=== PATIENT | female | born 1945 | race Caucasian/White ===

== ENCOUNTER 2017-10-28 02:20 | Inpatient (IN) | payer OTHER, MEDICARE ==
[~2017-10-28] VITALS: Ht 195.6 cm; Wt 55.4 kg
[~2017-10-28 02:20] MED LIST: ALDACTONE100 M1 PO; AMBIEN10 M1 PO; FUROSEMIDE40 M1 PO; LEVOTHYROXINE50 MCG PO; PERCOCET 5-3251 EACH PO; VENLAFAXINE HC150 M1 PO
--- NOTE | 2017-10-28 15:23 | Operative Report ---
Operative/Inv Procedure Report Surgery Date: 10/28/17 Name of Procedure: Left reverse total shoulder arthroplasty Pre-Operative Diagnosis: Left 4-part comminuted proximal humerus fracture Post-Operative Diagnosis: Left 4-part comminuted proximal humerus fracture Estimated Blood Loss: 150ml Surgeon/Central Office Supervisor: Lizabeth VILLALPANDO,Jabari Macias PA-C Anesthesia: general endotracheal tube, block IV Fluids: 2450mL Implants: Tornier Aequalis Reversed Fracture 25mm glenoid baseplate 36mm glenoid sphere 7mm humeral stem, cemented +9mm spacer with +6 lateralized humeral insert (poly) Drains: None Specimens: Humeral head Tourniquet: N/A Complications: None Condition: Stable Operative Indication: Ms. Ramesh is a 72 year-old left-hand dominant female who sustained a fall up several stairs on 10/14/17, landing on her left shoulder. She noted immediate pain and difficulty moving the arm; over the next few days she had increased bruising and swelling to the left chest wall, shoulder, forearm, and hand, prompting her to go to an Urgent Care for further evaluation. X-rays of the shoulder showed a comminuted proximal humerus fracture. She was initially evaluated by another provider, who ordered a CT scan. She followed up in the office for discussion of treatment options for her comminuted 4-part proximal humerus fracture. After discussing non-operative vs surgical intervention as well as the risks and benefits of surgery, she and her have opted to proceed with left reverse total shoulder arthroplasty. Consent was obtained and a pre-op evaluation was performed by her primary care provider. Operative/Procedure Note Note: Ms Ramesh arrived at [facility] on 10/28/17. She was met in the pre- operative area, where her left shoulder was marked and her medical history was reviewed. A regional block was performed by the anesthesia service. The patient was then brought to the operating room and placed supine on the OR table. A time-out procedure was performed, in which the patient, the operative extremity, and the planned procedure were reviewed. SCDs were applied to bilateral lower legs. The patient was induced under general anesthesia. IV ancef was given for antibiotic prophylaxis. She was then repositioned in a modified beach chair position; care was taken to maintain the head in a neutral position and pad all bony prominences. The left upper extremity was prepped and draped in the usual sterile fashion, and supported by an articulated arm positioner. An incision was made over the anterior shoulder over the deltopectoral interval. This was taken through skin and subcutaneous tissue, and flaps were raised medial and lateral. The cephalic vein was identified and the interval opened medial to the vein, which was protected and retracted lateral. The sub-deltoid space was bluntly dissected and frature comminution was encountered. A kobel retractor was placed, and the conjoint ligament was identified. The lateral soft tissues were opened up to the coracoid and through the coraco-acromial ligament. The retractor was carefully placed under the conjoint tendon and care was taken to avoid excessive retraction. The anterior humerus was comminuted and the soft tissues traumatized, consistent with the known fracture pattern. A torn stump of the long head of biceps tendon was identified distally and tagged with sutures. Following the bicipital groove, the subscapularis tendon was identified medial and some comminuted bone from the lesser tuberosity. This was tagged with suture. The interval between the subscapularis tendon and supraspinatus was opened with a Herrera scissor. A fragment of the greater tuberosity was identified with the rotator cuff tendons; more bone remained attached to the greater tuberosity than the lesser. This was tagged with sutures. A shell of humeral head bone and articular cartilage was removed; this was very thin and had rotated laterally away from the glenoid. Once removed, the glenoid was easily viewed. Retractors were placed and the stump of the long head of the biceps identified. The remaining biceps and labral tissue was removed and the inferior and anterior /posterior aspects of the glenoid delineated. A guide pin was placed in the central portion of the inferior glenoid; this was positioned using a guide and at approximately 10 degrees of inclination. A series of reamers were then used to remove the articular cartilage and to ensure the baseplate and glenosphere would sit flush against the glenoid. The central peg was reamed and a 25mm baseplate impacted down to the glenoid. Two locked screws were placed in the superior and inferior holes; one posterior compression screw was also placed with marginal purchase. The anterior compression screw hole was too short for a compression screw and was left empty. Following fixation of the baseplate, the 36mm glenosphere was carefully impacted into position and screwed into place. This provided excellent fixation and the retractor removed. The humerus was then translated anterior for exposure of the shaft. The humeral diaphysis had been translated superior and had impacted into the humeral head. There was remaining medial calcar, however there was comminution and soft bone around the proximal extent of the humerus. The fibrous soft tissues and hematoma were removed and the humeral canal irrigated. Hand reamers were placed ; a 7mm reamer fit easily but the 9mm reamer was tight. A 7mm trial stem was carefully positioned and a +6mm poly tray placed. When reducing the trial, a small segment of anteromedial bone fracted off the humerus. The joint was reduced but easily dislocated. A +9mm tray was trialed and found to have good motion and stabilty; the shoulder was not easily dislocated, no "shuck" appreciated, and full passive motion was attained without evidence of impingement. The trials were removed and the shoulder copiously irrigated with pulse lavage. A segment of bone was removed from the humeral head fragment and placed in the window of the stem implant. Two 2.0mm drill holes were made in the anterior humeral bone, just lateral to the bicipital groove. The bone here was tenuous, so additional drill holes were not made. A #5 ticron suture was passed through the drill holes to allow the suture to loop around the stem. A cement restrictor was placed and cement then filled the humeral canal. The implant was then placed in 25 deg of retroversion and carefully tapped down to the appropriate height, which had been estabilished with the trial. The cement was allowed to harden for over 15 minutes. Once solid, the +9mm poly trial was placed and the shoulder again reduced and stable on testing. The shoulder was dislocated again and irrigated with pulse lavage. The +9mm poly implant was open and impacted into place. At this time, additional muscle relaxation was administered by anesthesia. When the shoulder was reduced, the humeral component was easily "shucked" and dislocated with gentle pressure. The shoulder was again dislocated and the poly implant removed with an osteotome. Larger poly trials and a spacer trial were placed to find the appropriate tension and stability of the shoulder; a spacer was placed followed by a +6mm poly tray for optimal stability. The shoulder again had good motion with forward flexion, abduction, and external rotation, but was not noted to shuck and did not easily dislocate. Following placement of the final implants, the shoulder was again irrigated with pulse lavage. The cephalic vein was noted to be bleeding and was cauterized. The long head of the biceps tendon was tenodesed to the upper segment of the pectoralis major tendon insertion. The #5 ticron suture passed through the bone and around the stem was used to secure the greater tubersity fragment and supraspinatus tissue. Once secured, the sutures were also used to reduce the subscapularis tendon and small bony fragment to the stem. A #2 orthocord suture was used to close the interval between the supraspinatus and the subscupularis. Gentle passive external rotation showed a stable tendon reduction and configuration. The shoulder was again irrigated and hemostasis obtained. The deltopectoral interval was closed with three interrupted #2 orthocord stitches. The interval was then closed in layers using 0 vicryl, #2-0 vicryl, and #3-0 prolene for a running subcuticular stitch. The incision was re-inforced with steri-strips and dressed with gauze, an ABD pad, and foam tape. Following removal of the drapes, the patient's head was noted to be turned and not fully secured in the head positioner. She was repositioned and a sling applied. The was placed supine on the table and extubated. She was then taken from the OR to the recovery room in stable condition.
--- NOTE | 2017-10-28 15:50 | RADIOLOGY REPORT ---
EXAMINATION: XR SHOULDER, LEFT CLINICAL INFORMATION: Postoperative left shoulder. COMPARISON: None TECHNIQUE: Single portable view of the left shoulder. FINDINGS: There is a reverse total left shoulder arthroplasty. Hardware components appear appropriately aligned. The acromioclavicular joint is intact. The visualized lung is clear. Soft tissue swelling and gas. IMPRESSION: Reverse total left shoulder arthroplasty appears to be in appropriate alignment on this single view.
--- NOTE | 2017-10-28 16:13 | Admission Core Measures ---
Acute Coronary Syndrome (CM) ACS Core Measures Acute Coronary Syndrome Diagnosis No Congestive Heart Failure (NEW) CHF Core Measures Congestive Heart Failure Diagnosis No Cerebrovascular Accident CVA Core Measures CVA/TIA Diagnosis No Venous Thromboembolism VTE Core Jackie (View Protocol) VTE Risk Factors Surgery No Mechanical VTE Prophylaxis d/t N/A MechProphylax Ordered No VTE Pharm Prophylaxis d/t NA PharmProphylax ordered Problem List As ranked by this Provider includes Assessment & Plan 1. Comminuted left humeral fracture HOME MEDS Home Med List Furosemide 40 MG TABLET 1 TAB PO DAILY FLUID (Reported) Levothyroxine Sodium 50 MCG TABLET 1 TAB PO DAILY THYROID (Reported) Oxycodone HCl/Acetaminophen (Percocet 5-325 MG Tablet) 5 MG-325 MG TABLET 1 TAB PO 4 TIMES/DAY PRN PAIN (Reported) Spironolactone (Aldactone) 100 MG TABLET 1 TAB PO DAILY FLUID (Reported) Venlafaxine HCl (Venlafaxine HCl ER) 150 MG TAB.ER.24 1 TAB PO DAILY UNKNOWN (Reported) Zolpidem Tartrate (Ambien) 10 MG TABLET 1 TAB PO QPMP PRN SLEEP (Reported)
--- NOTE | 2017-10-28 16:29 | Patient Discharge Instructions ---
Discharge Instructions General Discharge Information You were seen/treated for: Left shoulder proximal humerus fracture You had these procedures: Reverse total shoulder replacement, left Watch for these problems: Increasing pain despite the use of pain medication Increasing redness, warmth and swelling Inability to utilize/bear weight with left arm Drainage of any type from incision Fever greater than 101.5 Do not soak the wound: Yes Other wound care: Keep wound clean and dry No ointments or lotions of any type on or near incision, no exceptions. Diet Continue normal diet: Yes Recommended Diet: Regular Activity Full Activity/No Limits: No Activity Self Limited: Yes Pounds, do NOT lift more than: 2 Acute Coronary Syndrome Inclusion Criteria At DC or during hospital stay patient has or had the following: ACS DIAGNOSIS No Discharge Core Measures Meds if any: Prescribed or Continued at Discharge Meds if any: NOT Prescribed or Continued at Discharge Congestive Heart Failure Inclusion Criteria At DC or during hospital stay patient has or had the following: CHF DIAGNOSIS No Discharge Core Measures Meds if any: Prescribed or Continued at Discharge Meds if any: NOT Prescribed or Continued at Discharge Cerebrovascular accident Inclusion Criteria At DC or during hospital stay patient has or had the following: CVA/TIA Diagnosis No Discharge Core Measures Meds if any: Prescribed or Continued at Discharge Meds if any: NOT Prescribed or Continued at Discharge Venous thromboembolism Inclusion Criteria VTE Diagnosis No VTE Type NONE VTE Confirmed by (Test) NONE Discharge Core Measures - Per Current guidelines, there needs to be overlap - treatment for the first 5 days of Warfarin therapy. - If discharged on Warfarin prior to 5 days of - overlap therapy, the patient will need to be - assessed for post discharge needs including - *Post discharge parental anticoagulation - *Warfarin and/or parental anticoagulation education - *Follow up date to check INR post discharge At least 5 days overlap therapy as Inpatient No Meds if any: Prescribed or Continued at Discharge Note: Overlap Therapy is Warfarin and Anticoagulant Meds if any: NOT Prescribed or Continued at Discharge
--- NOTE | 2017-10-28 16:34 | Surgical Discharge Summary ---
Visit Information Visit Dates Admission Date: 10/28/17 Discharge Date: 10/30/17 History of Present Illness Chief Complaint: Left shoulder comminuted 4-part proximal humerus fracture Medical History Blood Transfusion Hx: Yes (2u transfused 10/29/17) Surgical History Pertinent Surgical History: non-contributory Psychosocial History What is Your Primary Language? Vietnamese Review of Systems: See H&P Hospital Course Course Attending Physician: Karime Barone MD Primary Care Physician: Fly Frazier MD Hospital Course: Ms. Ramesh was admitted to the hospital on 10/28/2017 and underwent a left reverse total shoulder arthroplasty for her left comminuted 4-part proximal humerus fracture. She tolerated the procedure well and was transferred to a general surgical floor. There, her diet was advanced and tolerated and she voided spontaneously. She was evalualted and treated by physical therapy. She was noted to have mild hypotension, but denied dizziness or headache. Her labs values on POD#1 showed acute anemia of 6.9/17. She was transfused 2u of PRBCs with appropriate response in her vital signs and blood counts. At the time of hospital discharge, her vital signs were stable and within normal limits, her neurovascular status was intact, and her pain was controlled with the use of oral pain medication. She was deemed appropriate for discharge. Allergies: Coded Allergies: trazodone (UPSET STOMACH 10/28/17) Pertinent Lab Results: POD#1 labs: 5.9/17.4, rechecked 6.5/19 POD#2 labs: 10.6/31.8 Disposition Summary Disposition Principal Diagnosis: Left proximal humerus comminuted fracture Additional Diagnosis: None Discharge Disposition: home health services Discharge Instructions General Discharge Information Code Status: Full Code Patient's Diet: Regular, advance as tolerated Patient's Activity: As tolerated, no lifting Sling at all times, bolster when up and walking. No active movement of the arm. No external rotation of the shoulder or extension. Follow-Up Instructions/Appts: Follow up with Dr. Barone in 1-2 weeks from date of surgery. Medications at Discharge Discharge Medications: Continue taking these medications: Furosemide (Furosemide) 40 MG TABLET 1 Tablet ORAL DAILY Comments: Last Taken:10/30/17 Time:8AM Spironolactone (Aldactone) 100 MG TABLET 1 Tablet ORAL DAILY Comments: Last Taken:10/30/17 Time:8AM Venlafaxine HCl (Venlafaxine HCl ER) 150 MG TAB.ER.24 1 Tablet ORAL DAILY Comments: Last Taken:10/30/17 Time:8AM Levothyroxine Sodium (Levothyroxine Sodium) 50 MCG TABLET 1 Tablet ORAL DAILY Comments: Last Taken:10/30/17 Time:6AM Zolpidem Tartrate (Ambien) 10 MG TABLET 1 Tablet ORAL Every night as needed as needed for SLEEP Comments: NOT GIVEN Oxycodone HCl/Acetaminophen (Percocet 5-325 MG Tablet) 5 MG-325 MG TABLET 1 Tablet ORAL 4 TIMES A DAY as needed for PAIN Comments: Last Taken:10/29/17 Time:3AM Start taking the following new medications: Aspirin (Ecotrin*) 81 MG TABLET.DR 1 Tablet ORAL TWICE DAILY Qty = 80 No Refills Oxycodone HCl/Acetaminophen (Percocet 5-325 MG Tablet) 5 MG-325 MG TABLET 1 Tablet ORAL EVERY 4-6 HOURS as needed for postop pain Qty = 24 No Refills Attending MD Review Statement Attending Statement Attending MD Statement: examined this patient, discuss w/resident/PA/SYNTHETIC GEM PRESS OPERATOR, agreed w/resident/PA/SYNTHETIC GEM PRESS OPERATOR, discussed with family, reviewed EMR data (avail), reviewed images
--- NOTE | 2017-10-28 16:49 | RADIOLOGY REPORT ---
EXAMINATION: XR SHOULDER, LEFT CLINICAL INFORMATION: Left shoulder arthroplasty. COMPARISON: Radiograph from earlier today TECHNIQUE: Single portable view of the left shoulder. FINDINGS: Reverse total left shoulder arthroplasty again noted. Hardware components appear appropriately aligned. No evidence of failure. The visualized left lung is clear. IMPRESSION: Reverse total left shoulder arthroplasty in appropriate alignment.
[2017-10-28 17:00] VITALS: BP 86/70
--- NOTE | 2017-10-28 17:36 | PN- Orthopedic ---
Subjective Subjective: Postop check: Patient comfortable, no pain, no fever, no shortness of breath, no chest pain, states her arm is" numb" Objective Vital Signs and I&Os Vital signs stable, afebrile Physical Exam: Well-developed well-nourished no apparent distress. HEENT: Atraumatic, extraocular motion intact Neck: Supple, no lymphadenopathy trachea midline Respiratory: No respiratory distress Extremity: Left upper extremity, dressing clean dry and intact, sling applied, unable to test neurologic function due to anesthetic block. Vascular status is intact. Old ecchymosis and swelling noted in the hand and fingers Neuro: Alert and oriented x3 Psych: Mood affect normal, normal memory normal judgment. Skin: Warm and dry, no rash on exposed skin Results Recent Imaging Studies: xray left shoulder: Reverse total shoulder arthroplasty in alignment Assessment/Plan Assessment/Plan Postop day #0 status post left reverse total shoulder arthroplasty secondary to Left 4-part comminuted proximal humerus fracture Stay in sling. Occupational therapy tomorrow. Pain medication as needed. IV fluids overnight. Check labs in a.m. Aspirin for DVT prophylaxis. Perioperative antibiotics Hold NSAIDs OOB w assist First dressing change to be done as outpatient Likely discharge tomorrow to home Core Measures Venous Thromboembolism VTE Risk Factors Surgery No Mechanical VTE Prophylaxis d/t N/A MechProphylax Ordered No VTE Pharm Prophylaxis d/t NA PharmProphylax ordered
[2017-10-28 19:40] VITALS: BP 90/50
[2017-10-28 21:00] VITALS: BP 86/52
[2017-10-28 22:16] VITALS: BP 86/50
[2017-10-29 03:21] VITALS: BP 110/60
[2017-10-29 06:23] VITALS: BP 88/56
[2017-10-29 09:39] LABS: ABSOLUTE BASOPHIL COUNT 0 /CUMM (0.0-0.2); ABSOLUTE EOSINOPHIL COUNT 0 /CUMM (0.0-0.7); ABSOLUTE GRANULOCYTE CT 7.9 /CUMM (1.4-6.5); ABSOLUTE LYMPH COUNT 0.8 /CUMM (1.2-3.4); ABSOLUTE MONOCYTE COUNT 0.5 /CUMM (0.10-0.60); BASOPHIL % 0 % (0.0-2.0); EOSINOPHIL % 0 % (0-5); MEAN CORPUSCULAR HGB 36.8 PG (27.0-31.0); MEAN CORPUSCULAR HGB CONC 34.2 G/DL (33.0-37.0); MEAN CORPUSCULAR VOLUME 107.8 FL (81.0-99.0); MEAN PLATELET VOLUME 7.3 FL (7.4-10.4); PLATELET COUNT 223 /CUMM (130-400); RBC DISTRIBUTION WIDTH 13.6 % (11.5-14.5)
[2017-10-29 09:45] LABS: RED BLOOD CELL CT 1.61 /CUMM (4.20-5.40); WHITE BLOOD CELL COUNT 9.1 /CUMM (4.8-10.8)
[2017-10-29 09:47] LABS: HEMATOCRIT 17.4 % (37-47)
[2017-10-29 10:12] LABS: ABSOLUTE BASOPHIL COUNT 0 /CUMM (0.0-0.2); ABSOLUTE EOSINOPHIL COUNT 0 /CUMM (0.0-0.7); ABSOLUTE GRANULOCYTE CT 10.5 /CUMM (1.4-6.5); ABSOLUTE LYMPH COUNT 1.6 /CUMM (1.2-3.4); ABSOLUTE MONOCYTE COUNT 0.9 /CUMM (0.10-0.60); BASOPHIL % 0.3 % (0.0-2.0); EOSINOPHIL % 0 % (0-5); MEAN CORPUSCULAR HGB 36.7 PG (27.0-31.0); MEAN CORPUSCULAR HGB CONC 34.1 G/DL (33.0-37.0); MEAN CORPUSCULAR VOLUME 107.6 FL (81.0-99.0); MEAN PLATELET VOLUME 7.4 FL (7.4-10.4); PLATELET COUNT 270 /CUMM (130-400); RBC DISTRIBUTION WIDTH 13.5 % (11.5-14.5); RED BLOOD CELL CT 1.76 /CUMM (4.20-5.40)
--- NOTE | 2017-10-29 10:28 | PN- Orthopedic ---
Subjective Subjective: Patient seen and examined this morning. She is doing well and denies pain as left arm is still numb from the regional block. She says she did not sleep well due to noise from her roommate and was up every 2hrs. She is eager to go home. Says she has been up to the bathroom and was feeling steady on her feet. Denies headache, chest pain, trouble breathing, or nausea. Ate her dinner last night and was feeling hungry. Objective Vital Signs and I&Os Vital Signs Date Time Temp Pulse Resp B/P B/P Pulse O2 O2 Flow FiO2 Mean Ox Delivery Rate 10/29 622 98.2 91 20 88/56 95 Room Air 10/29 0321 97.5 88 20 110/60 98 Room Air 10/28 2216 97.5 82 18 86/50 92 10/28 2100 97.5 81 18 86/52 94 10/28 2052 Room Air 10/28 1940 97.6 81 18 90/50 96 10/28 1730 98 Room Air 10/28 1700 97.6 88 15 86/70 98 Room Air Intake & Output 10/29 1600 10/29 0800 10/29 0000 10/28 1600 10/28 0800 10/28 0000 Intake Total 800 150 Output Total 700 250 Balance 100 -100 Intake, IV 400 100 Intake, Oral 400 50 Output, Urine 700 250 Patient 122 lb 105 lb Weight Weight Reported by Patient Measurement Method Physical Exam: Patient lying in bed, comfortable. Alert, oriented, and in no distress. LUE: Dressing in place; clean, dry, and intact. Sling in place. Swelling to left hand and fingers. No active motion or sensation in the left hand or fingers. No sensation over the lateral arm. Able to strug bilateral shoulders. Sensation intact over chest wall and axilla; says the tape of her dressing is uncomfortable in the axilla but skin intact. Resolving ecchymosis over left chest wall and left arm/hand. 2+ radial pulse, hand warm and well-perfused. Results Last 48 Hours of Labs: Laboratory Tests 10/29 10/29 1003 0603 Chemistry Sodium (137 - 145 mmol/L) 136 L Potassium (3.5 - 5.1 mmol/L) 4.1 Chloride (98 - 107 mmol/L) 100 Carbon Dioxide (22 - 30 mmol/L) 29 Anion Gap (5 - 16) 8 BUN (7 - 17 mg/dL) 18 H Creatinine (0.5 - 1.0 mg/dL) 0.8 Estimated GFR (>60 ml/min) > 60 BUN/Creatinine Ratio (7 - 25 %) 22.5 Hematology CBC w Diff NO MAN DIFF REQ NO MAN DIFF REQ WBC (4.8 - 10.8 /CUMM) 13.0 H 9.1 RBC (4.20 - 5.40 /CUMM) 1.76 L 1.61 L Hgb (12.0 - 16.0 G/DL) 6.5 *L 5.9 *L Hct (37 - 47 %) 19.0 *L 17.4 *L MCV (81.0 - 99.0 FL) 107.6 H 107.8 H MCH (27.0 - 31.0 PG) 36.7 H 36.8 H MCHC (33.0 - 37.0 G/DL) 34.1 34.2 RDW (11.5 - 14.5 %) 13.5 13.6 Plt Count (130 - 400 /CUMM) 270 223 MPV (7.4 - 10.4 FL) 7.4 7.3 L Gran % (42.2 - 75.2 %) 81.0 H 86.0 H Lymphocytes % (20.5 - 51.1 %) 12.1 L 9.1 L Monocytes % (1.7 - 9.3 %) 6.6 4.9 Eosinophils % (0 - 5 %) 0 0 Basophils % (0.0 - 2.0 %) 0.3 0 Absolute Granulocytes (1.4 - 6.5 /CUMM) 10.5 H 7.9 H Absolute Lymphocytes (1.2 - 3.4 /CUMM) 1.6 0.8 L Absolute Monocytes (0.10 - 0.60 /CUMM) 0.9 H 0.5 Absolute Eosinophils (0.0 - 0.7 /CUMM) 0 0 Absolute Basophils (0.0 - 0.2 /CUMM) 0 0 Assessment/Plan Assessment/Plan 72yo F with history of cirrhosis and alcoholism, hypothyroidism, and osteopenia now POD#1 left reverse total shoulder arthroplasty for comminuted 4-part proximal humerus fracture. No issues overnight, pain control from intact regional block. Hypotension following surgery (86-110/50-70) but patient is asymptomatic at this time. AM labs showed H/H 5.9/17.4; recheck 6.5/19. 1. NWB LUE in sling; ultasling bolster when out of bed and ambulating. 2. Pillow to elevate LUE while resting in bed 3. When block wears off, encourage motion of hand and elbow to minimize swelling 4. Transfuse 2u PRBCs for low H/H and hypotension 5. OT evaluation 6. Pain control, limit tylenol due to history of liver disease. 7. Aspirin 81mg BID for DVT prophylaxis. SCDs while in bed. Encourage ambulation as tolerated. Plan for follow up in the office as scheduled on 11/10/17. Core Measures Venous Thromboembolism VTE Risk Factors Surgery No Mechanical VTE Prophylaxis d/t N/A MechProphylax Ordered No VTE Pharm Prophylaxis d/t NA PharmProphylax ordered Attending MD Review Statement Attending Statement Attending MD Statement: examined this patient, discuss w/resident/PA/SCREEDMAN/LABORER, agreed w/resident/PA/SCREEDMAN/LABORER, reviewed images
[2017-10-29 12:00] VITALS: BP 100/52
[2017-10-29 14:28] VITALS: BP 112/58
[2017-10-29 22:06] LABS: ABSOLUTE BASOPHIL COUNT 0 /CUMM (0.0-0.2); ABSOLUTE EOSINOPHIL COUNT 0 /CUMM (0.0-0.7); ABSOLUTE LYMPH COUNT 0.9 /CUMM (1.2-3.4); ABSOLUTE MONOCYTE COUNT 0.8 /CUMM (0.10-0.60); BASOPHIL % 0.1 % (0.0-2.0); EOSINOPHIL % 0 % (0-5); GRANULOCYTE % 80.5 % (42.2-75.2); MEAN CORPUSCULAR HGB 33.3 PG (27.0-31.0); MEAN CORPUSCULAR HGB CONC 34.1 G/DL (33.0-37.0); MEAN PLATELET VOLUME 7.2 FL (7.4-10.4); PLATELET COUNT 191 /CUMM (130-400); RBC DISTRIBUTION WIDTH 18.1 % (11.5-14.5); WHITE BLOOD CELL COUNT 8.8 /CUMM (4.8-10.8)
[2017-10-29 22:10] LABS: MEAN CORPUSCULAR VOLUME 97.8 FL (81.0-99.0); RED BLOOD CELL CT 2.96 /CUMM (4.20-5.40)
[2017-10-29 22:14] VITALS: BP 114/60
[2017-10-30] VITALS: BP 114/60
[2017-10-30 06:40] VITALS: BP 110/70
[2017-10-30 08:09] LABS: ABSOLUTE BASOPHIL COUNT 0 /CUMM (0.0-0.2); ABSOLUTE EOSINOPHIL COUNT 0 /CUMM (0.0-0.7); ABSOLUTE GRANULOCYTE CT 7.6 /CUMM (1.4-6.5); ABSOLUTE LYMPH COUNT 1.1 /CUMM (1.2-3.4); ABSOLUTE MONOCYTE COUNT 0.7 /CUMM (0.10-0.60); BASOPHIL % 0.1 % (0.0-2.0); EOSINOPHIL % 0 % (0-5); GRANULOCYTE % 80.7 % (42.2-75.2); HEMATOCRIT 31.8 % (37-47); MEAN CORPUSCULAR HGB CONC 33.5 G/DL (33.0-37.0); MEAN CORPUSCULAR VOLUME 98.4 FL (81.0-99.0); MEAN PLATELET VOLUME 7.4 FL (7.4-10.4); PLATELET COUNT 195 /CUMM (130-400); RBC DISTRIBUTION WIDTH 18.9 % (11.5-14.5); RED BLOOD CELL CT 3.23 /CUMM (4.20-5.40); WHITE BLOOD CELL COUNT 9.4 /CUMM (4.8-10.8)
--- NOTE | 2017-10-30 08:53 | PN- Orthopedic ---
See Addendum Subjective Subjective: Sitting in bed with minimal pain. No complaints this morning States that she work with occupational therapy yesterday and has increased range of motion in her hands and fingers. Tolerating regular diet, no nausea Denies chest pain shortness of breath and fever. Objective Vital Signs and I&Os Vital Signs Date Time Temp Pulse Resp B/P B/P Pulse O2 O2 Flow FiO2 Mean Ox Delivery Rate 10/30 0640 97.0 58 20 110/70 93 Room Air 10/30 0000 98.4 100 20 114/60 10/29 2214 98.4 100 20 114/60 97 10/29 1428 97.8 102 20 112/58 96 10/29 1200 98.0 92 20 100/52 Intake & Output 10/30 1600 10/30 0810/30 0000 10/29 1600 10/29 0000 Intake Total 200 470 410 800 150 Output Total 500 500 700 250 Balance -300 -30 410 100 -100 Intake, Blood 350 Product Intake, IV 50 400 100 Intake, Oral 200 120 360 400 50 Output, Urine 500 500 700 250 Patient 122 lb 105 lb Weight Weight Reported by Patient Measurement Method Physical Exam: Generalno acute distress Respirationsclear bilaterally Cardiacregular rate and rhythm Abdomensoft nontender Extremitiesleft shoulder dressing intact clean and dry. distal sensory and motor function intact in left upper extremity. Significant ecchymosis of left fingers. Current Medications: Current Medications Sig/Caryl Start time Last Medication Dose Route Stop Time Status Admin Acetaminophen 650 MG Q6P PRN 10/28 1715 AC PO Acetaminophen 1,000 MG Q6H 10/28 1715 DC 10/29 N/A 1 UNIT IV 10/29 1129 0516 Aspirin 81 MG BID 10/29 09 AC 10/30 PO 0800 Docusate Sodium 100 MG BID 10/28 1545 AC 10/30 PO 0800 Furosemide 40 MG DAILY 10/29 0900 AC 10/30 PO 0800 Levothyroxine Sodium 0.05 MG DAILY AC 10/29 0700 AC 10/30 PO 0552 Lorazepam 0 Q1P PRN 10/29 1100 AC IV Morphine Sulfate 2 MG Q2P PRN 10/28 1715 AC IV Ondansetron HCl 4 MG Q6P PRN 10/28 1715 AC IV Oxycodone HCl 5 MG Q4P PRN 10/29 1015 AC PO Oxycodone HCl 10 MG Q4P PRN 10/29 1015 AC 10/30 PO 0608 Oxycodone/ 1 TAB Q4P PRN 10/28 1715 DC 10/29 Acetaminophen PO 0318 Oxycodone/ 2 TAB Q4P PRN 10/28 171 DC Acetaminophen PO Senna 374 MG AT BEDTIME NEED.. 10/28 1715 AC PO Spironolactone 100 MG DAILY 10/29 0900 AC 10/30 PO 0759 Venlafaxine HCl 150 MG 0810/29 0800 AC 10/30 PO 0759 Results Last 48 Hours of Labs: Laboratory Tests 10/30 10/29 0605 2140 Chemistry Sodium (137 - 145 mmol/L) 140 Potassium (3.5 - 5.1 mmol/L) 3.7 Chloride (98 - 107 mmol/L) 102 Carbon Dioxide (22 - 30 mmol/L) 30 Anion Gap (5 - 16) 8 BUN (7 - 17 mg/dL) 14 Creatinine (0.5 - 1.0 mg/dL) 0.6 Estimated GFR (>60 ml/min) > 60 BUN/Creatinine Ratio (7 - 25 %) 23.3 Hematology CBC w Diff NO MAN DIFF REQ NO MAN DIFF REQ WBC (4.8 - 10.8 /CUMM) 9.4 8.8 RBC (4.20 - 5.40 /CUMM) 3.23 L 2.96 L Hgb (12.0 - 16.0 G/DL) 10.6 L 9.9 L Hct (37 - 47 %) 31.8 L 29.0 L MCV (81.0 - 99.0 FL) 98.4 97.8 MCH (27.0 - 31.0 PG) 33.0 H 33.3 H MCHC (33.0 - 37.0 G/DL) 33.5 34.1 RDW (11.5 - 14.5 %) 18.9 H 18.1 H Plt Count (130 - 400 /CUMM) 195 191 MPV (7.4 - 10.4 FL) 7.4 7.2 L Gran % (42.2 - 75.2 %) 80.7 H 80.5 H Lymphocytes % (20.5 - 51.1 %) 11.7 L 10.8 L Monocytes % (1.7 - 9.3 %) 7.5 8.6 Eosinophils % (0 - 5 %) 0 0 Basophils % (0.0 - 2.0 %) 0.1 0.1 Absolute Granulocytes (1.4 - 6.5 /CUMM) 7.6 H 7.0 H Absolute Lymphocytes (1.2 - 3.4 /CUMM) 1.1 L 0.9 L Absolute Monocytes (0.10 - 0.60 /CUMM) 0.7 H 0.8 H Absolute Eosinophils (0.0 - 0.7 /CUMM) 0 0 Absolute Basophils (0.0 - 0.2 /CUMM) 0 0 10/29 10/29 1003 0603 Chemistry Sodium (137 - 145 mmol/L) 136 L Potassium (3.5 - 5.1 mmol/L) 4.1 Chloride (98 - 107 mmol/L) 100 Carbon Dioxide (22 - 30 mmol/L) 29 Anion Gap (5 - 16) 8 BUN (7 - 17 mg/dL) 18 H Creatinine (0.5 - 1.0 mg/dL) 0.8 Estimated GFR (>60 ml/min) > 60 BUN/Creatinine Ratio (7 - 25 %) 22.5 Hematology CBC w Diff NO MAN DIFF REQ NO MAN DIFF REQ WBC (4.8 - 10.8 /CUMM) 13.0 H 9.1 RBC (4.20 - 5.40 /CUMM) 1.76 L 1.61 L Hgb (12.0 - 16.0 G/DL) 6.5 *L 5.9 *L Hct (37 - 47 %) 19.0 *L 17.4 *L MCV (81.0 - 99.0 FL) 107.6 H 107.8 H MCH (27.0 - 31.0 PG) 36.7 H 36.8 H MCHC (33.0 - 37.0 G/DL) 34.1 34.2 RDW (11.5 - 14.5 %) 13.5 13.6 Plt Count (130 - 400 /CUMM) 270 223 MPV (7.4 - 10.4 FL) 7.4 7.3 L Gran % (42.2 - 75.2 %) 81.0 H 86.0 H Lymphocytes % (20.5 - 51.1 %) 12.1 L 9.1 L Monocytes % (1.7 - 9.3 %) 6.6 4.9 Eosinophils % (0 - 5 %) 0 0 Basophils % (0.0 - 2.0 %) 0.3 0 Absolute Granulocytes (1.4 - 6.5 /CUMM) 10.5 H 7.9 H Absolute Lymphocytes (1.2 - 3.4 /CUMM) 1.6 0.8 L Absolute Monocytes (0.10 - 0.60 /CUMM) 0.9 H 0.5 Absolute Eosinophils (0.0 - 0.7 /CUMM) 0 0 Absolute Basophils (0.0 - 0.2 /CUMM) 0 0 Assessment/Plan Assessment/Plan 72yo F with history of cirrhosis and alcoholism, hypothyroidism, and osteopenia now POD#1 left reverse total shoulder arthroplasty for comminuted 4-part proximal humerus fracture with postop acute blood loss anemia. Was transfused 2 units PRBCs postoperatively. Hematocrit has been trending up. 1. NWB LUE in sling; ultasling bolster when out of bed and ambulating. 2. Pillow to elevate LUE while resting in bed 3. OT evaluation 4. Pain control, limit tylenol due to history of liver disease. 5. Aspirin 81mg BID for DVT prophylaxis. SCDs while in bed. Encourage ambulation as tolerated. [facility] Plan for follow up in the office as scheduled on 11/10/17. Core Measures Venous Thromboembolism VTE Risk Factors Surgery No Mechanical VTE Prophylaxis d/t N/A MechProphylax Ordered No VTE Pharm Prophylaxis d/t NA PharmProphylax ordered
[2017-10-30] MEDS ORDERED: PERCOCET 5-3251 EACH PO (11:07)
[2017-10-30] MEDS ORDERED: ASPIRIN EC81 M1 PO (11:07)
== END 2017-10-30 13:39 | disposition home health service (06) | DRG 483 ==
LOC: 2NA 02:20 → SDA 02:20 → ENRESERV 15:53 → ENTRNSPT 16:46 → EDTRNSPT 16:48 → EDTRNSPTSTS 16:48 → EDTRNSPT 16:51 → CMPTRNSPT 16:51 → 2NA 17:00 → ENPENDDIS 10-30 11:11 → 2NA 10-30 13:39
PROVIDERS: Nurse Practitioner; Physician Assistant Surgical
PROC: 0RRK00Z Replacement of Left Shoulder Joint with Reverse Ball and Socket Synthetic Substitute, Open Approach (ICD-10-PCS; principal; 2017-10-28)
PROC: 30233N1 Transfusion of Nonautologous Red Blood Cells into Peripheral Vein, Percutaneous Approach (ICD-10-PCS; 2017-10-28)
PROC: 3E0T3BZ Introduction of Anesthetic Agent into Peripheral Nerves and Plexi, Percutaneous Approach (ICD-10-PCS; 2017-10-29)
DX: S42.202A Unspecified fracture of upper end of left humerus, initial encounter for closed fracture (principal); D62 Acute posthemorrhagic anemia; K70.31 Alcoholic cirrhosis of liver with ascites; F10.10 Alcohol abuse, uncomplicated; I95.81 Postprocedural hypotension; E03.9 Hypothyroidism, unspecified; F41.9 Anxiety disorder, unspecified; Z98.51 Tubal ligation status
CPT/HCPCS: 2NASP; 36415; 36592; 73030-LT; 82436; 86920; 97165-GO; C1713; C9290; J0131; J0690; J3490; J7042; P9016